=== PATIENT | female | born 1945 | race Two or more races ===

== ENCOUNTER 2022-12-31 06:25 | Day surgery (SDC) | payer OTHER ==
[~2022-12-31 06:25] MED LIST: CHILDREN'S ASPI81 MG PO; COZAAR25 MG PO; D3 + K2 DOTS 11 EACH PO; GEMTESA75 MG PO; METFORMIN HCL500 M3 PO; MULTIPLE VITAM1 EAC2 PO; SYNTHROID50 MCG PO
== END 2022-12-31 16:15 | disposition home or self-care (01) ==
LOC: CIR.AMB 06:25 → AMB-ENDOS 07:15 → AMB-ERCP 07:15 → CIR.AMB 16:15
PROVIDERS: ATTEND Internal Medicine Gastroenterology
DX: K83.8 Other specified diseases of biliary tract (principal); K86.2 Cyst of pancreas; R10.13 Epigastric pain; Z20.822 Contact with and (suspected) exposure to COVID-19